=== PATIENT | male | born 1965 | race Caucasian/White ===

== ENCOUNTER → 2021-11-29 09:59 | Outpatient (BNVA) | payer BC, SELFPAY | PROVIDERS: Visit Provider Emergency Medicine | DX: M25.572 Pain in left ankle and joints of left foot (principal); S99.912A Unspecified injury of left ankle, initial encounter; W19.XXXA Unspecified fall, initial encounter | CPT/HCPCS: 73610 ==

== ENCOUNTER → 2023-03-01 15:59 | Outpatient (BNVA) | payer BC, SELFPAY | PROVIDERS: Visit Provider Nurse Practitioner Family | DX: R69 Illness, unspecified (principal); Z20.822 Contact with and (suspected) exposure to COVID-19 | CPT/HCPCS: 87400; 87426 ==